=== PATIENT | female | born 1950 | race Caucasian/White ===

== ENCOUNTER 2017-07-17 14:53 | Emergency (ER) | payer OTHER ==
[~2017-07-17] VITALS: Ht 170.2 cm; Wt 67.1 kg
--- NOTE | ~2017-07-17 | EKG ---
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
[~2017-07-17 14:53] MED LIST: AMBEREN; COZAAR 25 MG TA25 M1 PO; DOXYCYCLINE 10100 MG PO; DULCOLAX5 MG PO; HTN MED; HYDROCODON-ACE1 EAC8; NALOXONE; OXYCONTIN20 M1 PO; PENTAZOCINE; PREDNISONE 20 M20 MG PO; PROZAC40 MG; RESTORIL30 MG; SOMA250 MG; XANAX XR1 MG; XANAX1 MG PO
[2017-07-17 16:05] LABS: HEMATOCRIT 36.4 % (37.0-47.0); HEMOGLOBIN 12.2 gm/dL (12.0-15.0); MANUAL DIFF YES; MCH 29.8 pg (26.0-34.0); MCHC 33.6 g/dL (28.0-37.0); MCV 88.8 fL (80.0-100.0); PLATELET COUNT 217 thou/uL (150-400); RDW 12.9 % (10.5-14.5); WBC 15.9 thou/uL (4.0-11.0)
[2017-07-17 16:13] LABS: ANION GAP 4 mmol/L (7-16); BUN 17 mg/dL (7-18); CALCIUM 8.5 mg/dL (8.5-10.1); CHLORIDE 106 mmol/L (98-107); CO2 30 mmol/L (21-32); CREATININE 0.8 mg/dL (0.6-1.0); GLUCOSE 108 mg/dL (74-106); POTASSIUM 4.1 mmol/L (3.5-5.1); SODIUM 140 mmol/L (136-145)
[2017-07-17 16:22] LABS: ALBUMIN 3.4 g/dL (3.4-5.0); ALKALINE PHOSPHATASE 65 U/L (46-116); MAGNESIUM 1.9 mg/dL (1.8-2.4); SGOT 18 U/L (15-37); SGPT 22 U/L (30-65); TOTAL BILIRUBIN 0.4 mg/dL (<0.1-1.0); TOTAL PROTEIN 6.2 g/dL (6.4-8.2); TROPONIN-I < 0.04 ng/mL (<0.04-0.07)
[2017-07-17 16:23] LABS: ABSOLUTE NEUTROPHILS 14.3 thou/uL (1.4-8.2); ANISOCYTOSIS 1+; POLYCHROMASIA OCCASIONAL; TOTAL CELL COUNT 100
[2017-07-17] MEDS ORDERED: PREDNISONE 20 M20 M1 PO (17:15)
[2017-07-17] MEDS ORDERED: ZPAK PO (17:15)
[2017-07-17 18:38] VITALS: BP 116/80
== END 2017-07-17 18:46 | disposition home or self-care (01) ==
LOC: ER 14:53
PROVIDERS: Emergency Medicine
DX: J44.1 Chronic obstructive pulmonary disease with (acute) exacerbation (principal); J40 Bronchitis, not specified as acute or chronic; Z71.6 Tobacco abuse counseling; Z72.0 Tobacco use; F10.99 Alcohol use, unspecified with unspecified alcohol-induced disorder; Z88.0 Allergy status to penicillin; Z90.49 Acquired absence of other specified parts of digestive tract; Z96.641 Presence of right artificial hip joint

== ENCOUNTER 2021-11-15 16:05 | Emergency (ER) | payer OTHER ==
[~2021-11-15] VITALS: Ht 170.2 cm; Wt 63.5 kg
--- NOTE | ~2021-11-15 | EMS ---
[place] [address] EMS Patient Care Report Name: ALESSANDRO ELLISON Room #: [facility] M.R.#: [id number] Admission: Attend Phys: Discharge: Date of : 50 Report #: [id number] THIS REPORT FOR: //name// Report Transmitted: 11/15/2021 15:50 EMS Care Summary [place], [place]/[facility] Incident [id number] @ 11/15/2021 15:28 Incident Location [address] [place] [address] Patient ALESSANDRO ELLISON Female, 71 Years 1950 Patient Address [address] [place] [address] Patient History Chronic Obstructive Pulmonary Disease (COPD),Hypertension (HTN),Back Pain (Chronic), Patient Allergies Amoxicillin, Patient Medications Prozac, Levothyroxine, Losartan, Temazepam, Trazodone, Oxycodone, Lamotrigine, Chief Complaint altered mental status Disposition Transported No Lights/[place] Reason Stroke/CVA Transported To [facility] Narrative Arrived to find pt laying on bed in upstairs bedroom. stated he last saw her "normal" about 4 hours ago. stated when he came to check on her, he found her wedged between the bed and the wall and [place] [address] EMS Patient Care Report Name: ALESSANDRO ELLISON Room #: [facility]#: [id number] Admission: Attend Phys: Discharge: Date of : 50 Report #: [id number] bed since she was unable to un-wedge herself. Pt stated she was "looking for my mom's jewelry". 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 stated she was not slurring her speech when he saw her a few hours ago and he suspects she has taken too much of a medication. Pt states she has had a "nibble" of her pain medication. Pt eyes not constricted. Pt has several medications, and supplements nearby. Pt states she has felt unwell for 3-weeks. Pt also stated she lost 20 lbs recently but has not taken her Hydroxycut supplement today. Pt denies taking too much of any medication. Pt placed on stairchair and carried down one set of internal stairs and a few external stairs, where she was placed on cot and secured to cot with cot straps. Pt placed in back of unit and placed in surgical mask. Pt was slightly confused, thinking it was year 2001. Pt transported without incident. Care to RN, rm 2. Initial Vitals @15:36P: 107,BP: 112/74,CO: 0,SpO2: 97, @15:43P: 83,BP: 103/69,Glucose: 102,SpO2: 96, @15:45P: 85,Pain: 0/10,CO: 1,SpO2: 97, @15:48P: 84,R: 16,Pain: 0/10,GCS: 14,Temp: 98.9F,SpO2: 98, Assessments @15:34MENTAL:Confused,Person Oriented,Place Oriented,SKIN:HEENT:Eyes: Left Pupil: 4-mm,Eyes: Right Pupil: 4-mm,Head/Face: No Abnormalities,Neck/Airway: No Abnormalities,LUNG SOUNDS:General: No Abnormalities,Left Upper: No Abnormalities,Right Upper: No Abnormalities,Left Lower: No Abnormalities,Right Lower: No Abnormalities,ABDOMEN:General: No Abnormalities,Left Upper: No Abnormalities,Right Upper: No Abnormalities,Left Lower: No Abnormalities,Right Lower: No Abnormalities,PELVIS//GI:EXTREMITIES:Left Arm: No Abnormalities,Right Arm: No Abnormalities,Left Leg: No Abnormalities,Right Leg: No Abnormalities,PULSE:NEURO:Slurred Speech, Impression Altered Mental Status Procedures @15:48 12-Lead ECG Response: UnchangedSucceeded @15:46 IV Therapy - Saline Lock 10cc (20 ga) Site: Antecubital-Left Response: UnchangedSucceeded @15:45 3-Lead ECG Response: UnchangedSucceeded @15:34 ALS Assessment Response: UnchangedSucceeded Timeline 15:26,Call Received 15:26,Dispatch Notified 15:28,Dispatched [address] [address] EMS Patient Care Report Name: TERRAALESSANDRO L Room #: [facility] M.R.#: [id number] Admission: Attend Phys: Discharge: Date of : 50 Report #: [id number] 15:28,En Route 15:31,On Scene 15:33,At Patient 15:34,ALS Assessment,Response: UnchangedSucceeded, 15:36,BP: 112/74 M,PULSE: 107,RR: R,SPO2: 97 Ox,ETCO2: ,BG: ,PAIN: ,GCS: , 15:43,BP: 103/69 M,PULSE: 83,RR: R,SPO2: 96 Ox,ETCO2: ,B,PAIN: ,GCS: , 15:45,3-Lead ECG,Response: UnchangedSucceeded, 15:45,BP: / M,PULSE: 85,RR: R,SPO2: 97 Ox,ETCO2: ,BG: ,PAIN: 0,GCS: , 15:46,IV Therapy - Saline Lock 10cc 20 ga Site: Antecubital-Left,Response: UnchangedSucceeded, 15:48,12-Lead ECG,Response: UnchangedSucceeded, 15:48,BP: / M,PULSE: 84,RR: 16 R,SPO2: 98 Ox,ETCO2: ,BG: ,PAIN: 0,GCS: 14, 15:53,Depart Scene 15:58,At Destination 16:15,Call Closed Disclaimer v1.1 Copyright 2021 [employer] This EMS Care Summary contains data elements from the applicable legal record (which may be displayed differently). It is designed to provide pertinent information for the following purposes: continuity of care, clinical quality, and state data reporting. The complete legal record is available to ED staff and administrators of the receiving hospital in [employer] Patient Tracker. All data is provided "as is."
[~2021-11-15 16:05] MED LIST changes: +PREDNISONE 20 M20 M1 PO; +ZPAK PO
[2021-11-15 16:42] LABS: HEMATOCRIT 37.1 % (37.0-47.0); HEMOGLOBIN 12.1 gm/dL (12.0-15.0); MCHC 32.7 g/dL (28.0-37.0); MCV 88.6 fL (80.0-100.0); RBC 4.19 mil/uL (4.20-5.00); RDW 13.9 % (10.5-14.5); WBC 6.7 thou/uL (4.0-11.0)
[2021-11-15 16:59] LABS: ANION GAP 9 mmol/L (7-16); BUN 17 mg/dL (7-18); CALCIUM 9.2 mg/dL (8.5-10.1); CHLORIDE 103 mmol/L (98-107); CO2 25 mmol/L (21-32); CREATININE 0.8 mg/dL (0.6-1.0); GLUCOSE 109 mg/dL (74-106); POTASSIUM 4.4 mmol/L (3.5-5.1); SODIUM 137 mmol/L (136-145)
[2021-11-15 17:12] LABS: ALBUMIN 3.2 g/dL (3.4-5.0); PHOSPHORUS 3.1 mg/dL (2.6-4.7); SALICYLATE < 2.8 mg/dL (2.8-20.0); SGOT 23 U/L (15-37); SGPT 23 U/L (14-59); TOTAL BILIRUBIN 0.4 mg/dL (0.2-1.0); TOTAL PROTEIN 6.3 g/dL (6.4-8.2)
[2021-11-15 20:19] LABS: URINE BILIRUBIN NEGATIVE (Negative); URINE BLOOD NEGATIVE (Negative); URINE CLARITY CLEAR; URINE COLOR YELLOW; URINE GLUCOSE-RANDOM* NEGATIVE (Negative); URINE KETONES NEGATIVE (Negative); URINE LEUKOCYTES-REFLEX NEGATIVE (Negative); URINE NITRITE-REFLEX NEGATIVE (Negative); URINE PROTEIN (DIPSTICK) NEGATIVE (Negative); URINE SPECIFIC GRAVITY 1.025 (1.005-1.035); URINE UROBILINOGEN 0.2 E.U./dl (0.2-1.0)
[2021-11-15 20:30] LABS: AMP/METHAMP Negative (Negative); BARBITURATES Negative (Negative); BENZODIAZEPINES POSITIVE (Negative); COCAINE Negative (Negative); METHADONE Negative (Negative); OPIATES POSITIVE (Negative); PCP Negative (Negative)
[2021-11-15 21:09] VITALS: BP 108/58
--- NOTE | 2021-11-16 08:08 | EKG ---
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1950 Requested By: Niels Branham Order Number: [id number] MD: Cain Deleon Measurements Intervals [place] Rate: 77 P: 19 NV: 129 QRS: -26 QRSD: 88 T: 7 QT: 429 QTc: 486 Interpretive Statements Sinus rhythm Borderline left axis deviation Borderline prolonged QT interval Compared to ECG 07/17/2017 16:27:39 No significant changes Electronically Signed On 11-16-2021 8:08:04 SENIOR PRINCIPAL SOFTWARE ENGINEER by Cain Deleon [email or web address] <ELECTRONICALLY SIGNED> By: Cain Deleon MD, [facility] 11/16/21 0808 1629 1629 Cain Deleon MD, FACC /EPI
== END 2021-11-15 21:11 | disposition home or self-care (01) ==
LOC: ER 16:05
PROVIDERS: Emergency Medicine
DX: T65.91XA Toxic effect of unspecified substance, accidental (unintentional), initial encounter (principal); Z20.822 Contact with and (suspected) exposure to COVID-19; R41.82 Altered mental status, unspecified; R53.1 Weakness; J44.9 Chronic obstructive pulmonary disease, unspecified; Z90.49 Acquired absence of other specified parts of digestive tract; Z79.899 Other long term (current) drug therapy; Z88.0 Allergy status to penicillin; Y92.89 Other specified places as the place of occurrence of the external cause